=== PATIENT | male | born 1955 | race African-American/Black ===

== ENCOUNTER 2025-03-05 15:20 | Observation (INO) | payer MEDICARE ==
[2025-03-05 16:06] VITALS: BMI 26.1
[2025-03-05] MEDS ORDERED: Bisacodyl 10 MG SUPP PR PRN (16:06)
[2025-03-05] MEDS ORDERED: Melatonin 3 MG TAB PO PRN (16:06)
[2025-03-05] MEDS ORDERED: Calcium Carbonate 500 MG ChewTAB PO PRN (16:06)
[2025-03-05] MEDS ORDERED: Acetaminophen 325 MG TAB PO PRN (16:06)
[2025-03-05] MEDS ORDERED: Senokot S 8.6-50 MG TAB PO PRN (16:06)
[2025-03-05] MEDS ORDERED: Dextrose 50% Abboject 50 ML SYRINGE SLOW IVP PRN (16:09)
[2025-03-05] MEDS ORDERED: Glucagon 1 MG/ML KIT IM PRN (16:09)
[2025-03-05 17:01] LABS: Troponin I Less than 0.010 ng/mL (< 0.028)
[2025-03-05 18:17] LABS: Influenza A by NAA Not Detected (NotDetected); Influenza B by NAA Not Detected (NotDetected); SARS-CoV-2 NAA Rapid Test Not Detected (NotDetected)
[2025-03-05 19:35] LABS: Troponin I Less than 0.010 ng/mL (< 0.028)
[2025-03-05] MEDS ORDERED: Magnesium Oxide 400 MG TAB PO SCH (21:00)
[2025-03-05] MEDS: Carvedilol 25 MG TAB PO SCH (21:06)
[2025-03-05] MEDS: Cholecalciferol (Vitamin D3) 400 UNITS TAB PO SCH (21:06)
[2025-03-05] MEDS: Carvedilol 12.5 MG TAB PO SCH (21:06)
[2025-03-05] MEDS: Losartan 25 MG TAB PO SCH (21:06)
[2025-03-05] MEDS: Ezetimibe 10 MG TAB PO SCH (21:06)
[2025-03-05] MEDS: Mycophenolate DR 180 MG TAB PO SCH (21:07)
[2025-03-05] MEDS: Tacrolimus 0.5 MG CAP PO SCH (21:07)
[2025-03-05] MEDS: Lantus 1000 UNITS/10 ML VIAL SC SCH (21:08)
[2025-03-06 03:40] LABS: #Basophils Less than 0.03 10x3/uL (0.0-0.2); #Eosinophils 0.04 10x3/uL (0.0-0.5); #Monocytes 0.55 10x3/uL (0.0-1.1); #Neutrophils 5.12 10x3/uL (1.5-8.4); %Basophils 0.1 % (0.0-2.0); %Eosinophils 0.6 % (0.0-6.0); %Lymphocytes 16.8 % (18.0-47.0); %Monocytes 8.0 % (0.0-10.0); %Neutrophils 74.4 % (40.0-75.0); Hematocrit 43.2 % (38.8-50.0); Hemoglobin 14.9 g/dL (13.5-17.5); Mean Corpuscular Hemoglobin 32.2 pg (27.0-33.0); Mean Corpuscular Volume 93.3 fL (81.2-95.1); Platelet Count 145 10x3/uL (150-450); Red Blood Cell (RBC) Count 4.63 10x6/uL (4.32-5.72); White Blood Cell (WBC) Count 6.89 10x3/uL (3.5-10.5)
[2025-03-06 03:53] LABS: Anion Gap 11 mmol/L (10-20); BUN (Urea Nitrogen) 22 mg/dL (8.4-25.7); Calc. Creatinine Clearance 76 mL/min (70-130); Calcium 9.6 mg/dL (7.8-10.44); Carbon Dioxide 22 mmol/L (23-31); Chloride 106 mmol/L (98-107); Glucose 245 mg/dL (80-115); Potassium 4.3 mmol/L (3.5-5.1); Sodium 135 mmol/L (136-145)
[2025-03-06 08:37] LABS: Legionella Urinary Ag Negative (Negative); Strep pneumo Urine Ag NEGATIVE (NEGATIVE)
[2025-03-06] MEDS: CO Q-10 CAPSULE 50 MG PO SCH (09:03)
[2025-03-06] MEDS: Aspirin Chewable 81 MG TAB PO SCH (09:04)
[2025-03-06] MEDS: Enoxaparin 40 MG (0.4 mL) SYRINGE SC SCH (09:05)
[2025-03-06] MEDS: cefTRIAXone\\ROCEPHIN 1 GM in Sodium Chloride 0.9% 100 ML IVPB SCH (09:06)
[2025-03-06] MEDS ORDERED: Magnesium Oxide 400 MG TAB PO SCH (12:00)
[2025-03-06 12:06] VITALS: BP 149/74; TEMP 98.4
== END 2025-03-06 12:57 | disposition home or self-care (01) ==
LOC: CSHTELE 15:51
PROVIDERS: ADMIT Internal Medicine; ATTEND Physician Assistant
DX: J18.9 Pneumonia, unspecified organism (principal); I25.10 Atherosclerotic heart disease of native coronary artery without angina pectoris; I12.0 Hypertensive chronic kidney disease with stage 5 chronic kidney disease or end stage renal disease; N18.6 End stage renal disease; E11.22 Type 2 diabetes mellitus with diabetic chronic kidney disease; E78.5 Hyperlipidemia, unspecified; Z94.0 Kidney transplant status; Z95.5 Presence of coronary angioplasty implant and graft; Z98.41 Cataract extraction status, right eye; Z98.42 Cataract extraction status, left eye; Z88.5 Allergy status to narcotic agent; Z88.8 Allergy status to other drugs, medicaments and biological substances; Z79.82 Long term (current) use of aspirin; Z79.4 Long term (current) use of insulin; Z79.84 Long term (current) use of oral hypoglycemic drugs; Z79.02 Long term (current) use of antithrombotics/antiplatelets; Z79.899 Other long term (current) drug therapy
CPT/HCPCS: 71045; 71250; 80048; 80053; 82962 ×2; 83036; 83690; 83735; 83880; 84145 ×2; 84484 ×2; 85025 ×2; 85610; 85730; 87449; 87636; 87899; 93005; J0696 ×2; J1650; J1815; J7120; 36415; 36416; 96372; 96374; G0378; J7507; J7512; J7518

== ENCOUNTER 2025-05-12 10:51 | Emergency (ER) | payer MEDICARE | END 2025-05-12 13:24 | LOC: CSHERS 10:51 | DX: M76.9 Unspecified enthesopathy, lower limb, excluding foot (principal); M79.605 Pain in left leg ==